=== PATIENT | male | born 1990 | race Caucasian/White ===

== ENCOUNTER 2023-01-25 06:34 | Emergency (ER) | payer SELFPAY ==
[2023-01-25] MEDS ORDERED: Ketorolac Tromethamine 30 MG/ML VIAL ONE (07:09)
== END 2023-01-25 07:45 | disposition home or self-care (01) ==
LOC: NAV ERS 06:34
DX: S52.521A Torus fracture of lower end of right radius, initial encounter for closed fracture (principal); W01.0XXA Fall on same level from slipping, tripping and stumbling without subsequent striking against object, initial encounter
CPT/HCPCS: 29125; 96374; J1885